=== PATIENT | male | born 1960 | race Caucasian/White ===

== ENCOUNTER 2022-03-18 18:08 | Emergency (ER) | payer OTHER ==
[~2022-03-18] VITALS: Ht 170.2 cm; Wt 74.8 kg
[2022-03-18 19:01] VITALS: BP 157/72
--- NOTE | 2022-03-18 21:14 | NUR ---
Dr. Scott examining patient.
[2022-03-18] MEDS ORDERED: IBUP-2213 PO (21:15)
[2022-03-18] MEDS ORDERED: SULF-59 PO (21:15)
[2022-03-18 21:40] VITALS: BP 145/72
--- NOTE | 2022-03-18 21:40 | NUR ---
Patient discharged with v/s stable. Written and verbal after care instructions given and explained. Patient alert, oriented and verbalized understanding of instructions. Ambulatory with steady gait. All questions addressed prior to discharge. ID band removed. Patient advised to follow up with PMD. Rx of Ibuprofen and Bactrim given. Patient educated on indication of medication including possible reaction and side effects. Opportunity to ask questions provided and answered.
== END 2022-03-18 21:40 | disposition home or self-care (01) ==
LOC: MED 18:08
DX: L03.116 Cellulitis of left lower limb (principal); E11.9 Type 2 diabetes mellitus without complications; Z79.1 Long term (current) use of non-steroidal anti-inflammatories (NSAID); Z79.2 Long term (current) use of antibiotics
CPT/HCPCS: 99283